=== PATIENT | male | born 1955 | race Caucasian/White ===

== ENCOUNTER 2023-03-22 10:53 | Outpatient (CLI) | payer MEDICARE, SELFPAY ==
--- NOTE | ~2023-03-22 | XR_ITS ---
XR abdomen/kub 1V DATE: 03/22/2023 11:28 INDICATION: Bilateral renal stones TECHNIQUE: 2 supine AP views COMPARISON: None FINDINGS: There are multiple calcifications overlying the left and right upper quadrants, including p robable hepatic and splenic calcified granulomas. There is some nonspecific punctate calcifications w hich might be within the bowel lumen. Renal calcifications are not definitively confirmed or excluded . Noncontrast CT examination would be more sensitive and specific for renal or urinary tract calculi. There is an approximately 1 cm calcification overlying the lower mid pelvis. Bladder calculus is not excluded. Bilateral calcified pelvic phleboliths are noted. There is evidence of abdominal aortic tortuosity or aneurysm. The psoas shadows are intact. No visceromegaly is evident. No evidence of bowel obstruction. Degenerative spurring of the thoracic and lumbar spine. IMPRESSION: Possible abdominal aortic aneurysm Noncontrast CT abdomen and pelvis examination would be more suitable for evaluation of possible urina ry tract calculi Reviewed, dictated and finalized at [facility]. Reviewed, dictated and finalized at location [] IMPRESSION: Possible abdominal aortic aneurysm Noncontrast CT abdomen and pelvis examination would be more suitable for evalua tion of possible urinary tract calculi
== END 2023-03-22 10:54 | disposition home or self-care (01) ==
LOC: ANHIMG 11:04
PROVIDERS: PCP Internal Medicine; Visit Provider Nurse Practitioner Adult Health
DX: N20.0 Calculus of kidney (principal)
CPT/HCPCS: 74018

== ENCOUNTER 2024-04-19 09:37 | Outpatient (CLI) | payer MEDICARE, SELFPAY ==
--- NOTE | ~2024-04-19 | XR_ITS ---
EXAMINATION: XR abdomen/kub 1V DATE: 04/19/2024 10:07 INDICATION: Bilateral flank pain. Hematuria. TECHNIQUE: A supine view of the abdomen on 2 radiographs was obtained. COMPARISON: CT abdomen and pelvis 04/19/2024 FINDINGS: There are no dilated loops of bowel. There is an abdominal aortic aneurysm with stent graft in expected position. There is a 18 mm stone in the bladder. There is a 5 mm stone in right kidney. There are phleboliths in the pelvis. IMPRESSION: 1. Bladder stone. 2. Right kidney stone. Reviewed, dictated and finalized at [facility].
--- NOTE | ~2024-04-19 | CT_ITS ---
Non-contrast CT scan of the Abdomen and Pelvis Clinical indication: Flank pain Technique: 2.5 mm axial scans were obtained through the abdomen and pelvis without intravenous or or al contrast. Dose reduction technique was used on this scan by utilizing automated exposure control a nd iterative reconstruction technique. The dose-length product (DLP) was 669.84 mGy-cm. Findings: Images through the lung bases reveal no abnormalities. Probable focal renal cortical calcification at the lower right pole rather than renal stone. No other renal stones seen. No hydronephrosis. No ureteral stones. The liver, spleen, pancreas, gallbladder, and adrenals appear normal. Infrarenal abdominal aortic ane urysm measures 6.1 cm in diameter, with aortic stent graft in place. There is no evidence of bowel obstruction. Images through the pelvis were performed. There is no evidence of ascites or lymphadenopathy. 1.5 cm urinary bladder stone present. Prostate gland mildly enlarged. Impression: 1.5 cm urinary bladder stone. 6.1 cm infrarenal abdominal aortic aneurysm, with aortic stent graft in place. Reviewed, dictated and finalized at [facility]. Impression: 1.5 cm urinary bladder stone. 6.1 cm infrarenal abdominal aortic aneurysm, with aortic stent graft in place.
== END 2024-04-19 09:38 | disposition home or self-care (01) ==
PROVIDERS: PCP Internal Medicine; Visit Provider Nurse Practitioner Family
DX: N21.0 Calculus in bladder (principal); N20.0 Calculus of kidney; I71.43 Infrarenal abdominal aortic aneurysm, without rupture
CPT/HCPCS: 74018; 74176